=== PATIENT | male | born 1940 | race Caucasian/White ===

== ENCOUNTER 2023-06-14 12:17 | Observation (INO) | payer MEDICARE, SELFPAY ==
[2023-06-14] VITALS (19 sets, daily range): BP systolic 130–197; BP diastolic 68–104; PULSE 75–131; RESP 15–22; TEMP 36.2–36.4; O2SAT 95–100; BMI 32.3
--- NOTE | ~2023-06-14 | CT_ITS ---
EXAMINATION: CTA brain carotid DATE: 06/14/2023 15:12 INDICATION: Abnormal noncontrast CT TECHNIQUE: Computed tomographic angiography (CTA) of the head was performed with 100 mL Omnipaque-350 intravenous contrast. CTA of the neck was performed with intravenous contrast. The dose-length produ ct was 1176.17 mGy-cm. Maximum intensity projection and volume rendered 3D-reconstructions were creat ed by the technologist on a separate workstation. Automated exposure control and iterative reconstruc tion technique were employed. COMPARISON: Noncontrast CT from today, 12/20/2007 FINDINGS: HEAD CTA: There is no acute intraparenchymal hemorrhage. No evidence of mass lesion. No evidence of a cute infarction. There is a large area of prior infarction involving the right frontoparietal region. There is mild periventricular and subcortical hypodensity probably related to small vessel ischemic disease. There is mild prominence of the sulci and ventricles related to cerebral atrophy. Intracrani al calcified cerebral atherosclerosis is noted. There are no extra-axial collections. There is no mas s effect or midline shift. The orbits and soft tissues are unremarkable. The visualized sinuses and m astoid air cells are well aerated. There is no significant stenosis of the basilar artery or posterior cerebral arteries. There is no si gnificant stenosis of the intracranial internal carotid arteries or the anterior or middle cerebral a rteries. The anterior communicating artery is normal. The posterior communicating arteries are diminu tive. There is no aneurysm. NECK CTA: The thyroid gland is unremarkable. The submandibular and parotid glands are symmetric. Ther e is no lymphadenopathy. There are no masses identified. The airway is unremarkable. The superior med iastinum is unremarkable. There is severe cervical spondylosis. There is 60% stenosis of the proximal right internal carotid artery relative to normal distal artery lumen diameter (NASCET criteria). There is 0% stenosis of the proximal left internal carotid artery r elative to normal distal artery lumen diameter. IMPRESSION: 1. No acute intracranial abnormality. Unremarkable head CTA. Area of prior infarction in the right fr ontoparietal region. 2. 60% stenosis of the proximal right internal carotid artery relative to normal distal artery lumen diameter (NASCET criteria). 3. 0% stenosis of the proximal left internal carotid artery relative to normal distal artery lumen di ameter. Reviewed, dictated and finalized at location F. Y CHILDHOOD WORKER IMPRESSION: 1. No acute intracranial abnormality. Unremarkable head CTA. Area of prior infa rction in the right frontoparietal region. 2. 60% stenosis of the proximal right internal carotid artery relative to alexandro l distal artery lumen diameter (NASCET criteria). 3. 0% stenosis of the proximal left internal carotid artery relative to normal distal artery lumen diameter.
--- NOTE | ~2023-06-14 | CT_ITS ---
EXAMINATION: CT brain wo con DATE: 06/14/2023 13:40 INDICATION: Seizure. Cerebrovascular accident. TECHNIQUE: Computed tomography (CT) of the head was performed without intravenous contrast. The mA wa s adjusted according to patient size. Iterative reconstruction technique was employed. Exam dose: 60 5.33 mGy-cm total exam DLP. COMPARISON: 12/20/2007 CTA carotids FINDINGS: There is a large continuous prominent area of asymmetric diminished attenuation of the whit e matter in the right frontal parietal area, particularly higher over the right cerebral convexity, w ith multiple skip areas of overlying raphael matter density loss/hypodensity. Prominent bilateral carotid siphon internal carotid artery calcifications in addition to basilar robert ry calcification and prominent bilateral vertebral artery calcifications are noted. There is nonspeci fic diminished attenuation of the cerebral white matter bilaterally, which may be due to chronic smal l vessel ischemic changes. There is no apparent intracranial mass lesion on this limited noncontrast examination. No midline zeynep ft or mass effect. No intracranial hemorrhage is detected. Mild bilateral basal ganglia calcification. There is moderately prominent central and cortical cerebral and cerebellar volume loss. No subdural or epidural hematoma is detected. There is prominent opacification in the posterior left ethmoids and minimal posterior right ethmoid s oft tissue thickening. The paranasal sinuses and mastoid air cells are otherwise unremarkable. No fracture or bone destruction of the cranial vault is detected. IMPRESSION: Prominent asymmetric area of diminished attenuation of the right frontal parietal white matter, with multiple skip areas of raphael matter hypodensity; differential diagnosis includes cerebrov ascular accident, cerebritis, edema secondary to underlying mass lesion, demyelinating disorder, post -radiation change. Consider further evaluation with CT examination with IV contrast material or prefe rably MR brain examination Cerebral atherosclerosis and chronic small vessel ischemic changes of the cerebral white matter. Reviewed, dictated and finalized at Location A. Reviewed, dictated and finalized at location A. PHYSICIAN IMPRESSION: Prominent asymmetric area of diminished attenuation of the right f rontal parietal white matter, with multiple skip areas of raphael matter hypodensi ty; differential diagnosis includes cerebrovascular accident, cerebritis, edema secondary to underlying mass lesion, demyelinating disorder, post-radiation ch john. Consider further evaluation with CT examination with IV contrast material or preferably MR brain examination Cerebral atherosclerosis and chronic small vessel ischemic changes of the cereb ral white matter.
--- NOTE | ~2023-06-14 | XR_ITS ---
XR chest 1V portable DATE: 06/14/2023 13:15 INDICATION: Cerebrovascular accident TECHNIQUE: Portable AP chest on 06/14/2023 at 1313 hours COMPARISON: 01/02/2008 PA and lateral chest FINDINGS: Normal heart size. Aortic calcification. No hilar or mediastinal enlargement. No pulmonary infiltrate or consolidation, pleural effusion or pulmonary mass congestion or pneumothor ax. IMPRESSION: No active cardiopulmonary disease Aortic calcification Reviewed, dictated and finalized at location A. SS LEAD
--- NOTE | ~2023-06-14 | MR_ITS ---
EXAMINATION: MR brain/brain stem wo/w con DATE: 06/15/2023 12:28 INDICATION: New onset seizure. TECHNIQUE: Magnetic resonance imaging (MRI) of the brain and brainstem was performed without and with 20 mL MultiHance intravenous contrast. COMPARISON: Head CT 06/14/2023 FINDINGS: There is an old infarct in right frontoparietal region. There are scattered areas of nonspe cific increased T2-weighted signal intensity in the cerebral white matter and carlos alberto. There is no intra cranial hemorrhage, acute infarction, or abnormal intracranial mass lesion. The ventricles are normal in size. There are likely changes of ocular lens replacement surgeries. There is mucosal thickening in the paranasal sinuses. There is a trace left mastoid effusion. IMPRESSION: 1. Old infarct in right frontoparietal region. 2. Extensive nonspecific cerebral white matter disease and pontine disease, which likely represents c hronic small vessel ischemic disease. Reviewed, dictated and finalized at location A. RIAL COORDINATOR IMPRESSION: 1. Old infarct in right frontoparietal region. 2. Extensive nonspecific cerebral white matter disease and pontine disease, whi ch likely represents chronic small vessel ischemic disease.
--- NOTE | 2023-06-14 12:45 | ECG_ITS ---
Measurements Intervals [place] Rate: 88 P: -57 IN: 153 QRS: 74 QRSD: 107 T: 61 QT: 366 QTc: 444 Interpretive Statements SINUS RHYTHM BORDERLINE ST ABNORMALITY- INFERIOR LEADS BASELINE WANDER- III, AVF, V4-V6 BORDERLINE ECG NO PREVIOUS ECG AVAILABLE FOR COMPARISON Electronically Signed On 06-14-2023 16:12:01 [employer]AXI DRIVER by Darrell Gilliland D.O.
--- NOTE | 2023-06-14 13:05 | ED.SEIZURE ---
HPI - Seizure General Chief Complaint: Seizure Stated Complaint: seizure-like activity Time Seen by Provider: 06/14/23 13:01 Source: patient, family ( and stepson) and EMS Mode of arrival: EMS Limitations: no limitations History of Present Illness HPI Narrative: 83 yo R hand dominant male with PMH stroke (2007) and Hx 97% carotid stenosis s/p surgical intervention with only some minor symptoms remaining. LKW 11:20am. At 11:30 witnessed him having tonic clonic seizure activity. She alerted staff. Seizure aborted on its own after approx 1 minute. He was then noted to have stroke like symptoms with left sided facial droop and left arm pain. He couldn't lift his left leg and arm due to report of weakness. EMS checked blood glucose which was 67, he received glucose. states he was recently started on medication due to behavioral changes/ agitation /outbursts. Medication list as follows: acetaminophen, Antivert, aspirin, bupropion, calcium carbonate, citalopram, multivitamin, hydrocodone acetaminophen 5 mg, Lasix, losartan, metformin, omeprazole, Victoza. of these, it appears the bupropion is new, order dated 06/10/2023 and began 06/11/2023, 150mg BID. He has a pending psych c/f for his behavioral outbursts. He does complain of a headache. He had diarrhea at [facility] around the time he entered facility and had 14 falls in the past year secondary to vertigo and foot drop. Related Data Home Medications Medication Instructions Recorded Confirmed Centrum Silver Men 100 mg BYMOUTH DAILY 06/14/23 06/14/23 bupropion HCl 150 mg tablet,12 hr 150 mg PO BID 06/14/23 06/14/23 sustained-release citalopram 10 mg tablet 10 mg DAILY 06/14/23 06/14/23 furosemide 20 mg tablet 20 mg DAILY 06/14/23 06/14/23 hydrocodone 5 mg-acetaminophen 325 1 tablet PO Q4H PRN Pain, Mild 06/14/23 06/14/23 mg tablet liraglutide 0.6 mg/0.1 mL (18 mg/3 18 mg subcut DAILY 06/14/23 06/14/23 mL) subcutaneous pen injector (Victoza 2-Yogi) losartan 100 mg tablet 100 mg PO DAILY 06/14/23 06/14/23 metformin 1,000 mg tablet 1,000 mg PO DAILY 06/14/23 06/14/23 omeprazole 20 mg capsule,delayed 20 mg PO DAILY 06/14/23 06/14/23 release Allergies Allergy/AdvReac Type Severity Reaction Status Date / Time No Known Allergies Allergy Unknown Verified 12/31/22 14:05 [facility] Past Medical History Medical History (Updated 06/15/23 @ 03:44 by Lissy Whitman MD) Adjustment disorder with depressed mood Cerebral infarction, unspecified (~2007) Cervicalgia Dementia Diabetes Dislocation of interphalangeal joint of left thumb Dizziness and giddiness Essential hypertension Functional quadriplegia Gastro-esophageal reflux disease without esophagitis History of carotid artery dissection History of stroke (~2007) Hyperlipidemia Hypertension Lesion of ulnar nerve, left upper limb Localized edema Malignant neoplasm of prostate (~1996) Nicotine dependence Obstructive sleep apnea Pain in left hip Pain, unspecified Polyosteoarthritis, unspecified Repeated falls Spinal stenosis, cervical region Type 2 diabetes mellitus Violent behavior Surgical History Surgical History (Updated 06/14/23 @ 23:57 by Abiola Guillory DO) History of appendectomy History of back surgery History of elbow surgery 2020- cubital tunnel release History of knee replacement bilateral- 2011 & 2012 History of penile implant (~2006) History of prostatectomy Radical prostatectomy 1996 History of right-sided carotid endarterectomy (~2007) History of surgery on arm 2013 left forearm reconstruction Status post cataract extraction of both eyes with insertion of intraocular lens Family History Family History Mother Hypertension Family history of congestive heart failure Father Malignant neoplasm of prostate Social History Social History (Updated 06/14/23 @ 23:57 by Abiola Guillory DO) Social History: Cod
[2023-06-14 14:04] LABS: Basophils Absolute Auto 0.1 K/mm3 (0.0-0.1); Basophils Percent Auto 0.8 % (0.2-1.2); Eosinophils Absolute Auto 0.2 K/mm3 (0-0.3); Eosinophils Percent Auto 1.2 % (0-4.4); Hematocrit 38.6 % (42.0-52.0); Hemoglobin 11.8 g/dL (14.0-18.0); Immature Granulocyte Absolute 0.21 K/mm3 (0.00-0.031); Immature Granulocyte Percent A 1.6 % (0-0.5); Lymphocytes Percent Auto 13.1 % (18.3-44.2); Mean Corpuscular HGB Conc 30.6 g/dl (32-36); Mean Corpuscular Hemoglobin 25.9 pg (26-34); Mean Corpuscular Volume 84.6 fl (80-100); Mean Platelet Volume 10.7 fl (7.4-10.4); Monocytes Absolute Auto 0.8 K/mm3 (0.1-0.6); Monocytes Percent Auto 6.3 % (2.6-8.5); Platelet Count Result 321 k/mm3 (150-375); Red Blood Count 4.56 M/mm3 (4.6-6.20); Red Cell Distribution Width 17.5 % (11.5-14.5)
[2023-06-14 14:16] LABS: Appearance Urine Clear (Clear); Bacteria Urine None Seen /hpf; Bilirubin Urine Negative (Negative); Blood Urine Negative (Negative); Color Urine Yellow (Yellow); Glucose Urine UA Negative (Negative); Ketones Urine Negative (Negative); Leukocyte Esterase Ur Negative LEU/UL (Negative); Nitrate Urine Negative (Negative); Non Pathogenic Casts 0-2; Protein Urine Trace mg/dL (Negative); RBC Urine 0-2 /hpf (0-2); Specific Grav Ur 1.011 (1.001-1.035); Squamous Epithelial Cell Urine None seen /hpf (Few); Urobilinogen Urine 0.2 mg/dL (<2.0); WBC Urine 0-5 /hpf; pH Urine 6.5 (5.0-9.0)
[2023-06-14 14:17] LABS: Alanine Aminotransferase 23 U/L (6-50); Albumin Level 4.4 g/dL (3.5-5.1); Alkaline Phosphatase 98 U/L (38-126); Anion Gap 14 mmol/L (8-16); Aspartate Amino Transferase 23 U/L (17-59); Bilirubin,Total 0.5 mg/dL (0.2-1.3); Blood Urea Nitrogen 17 mg/dL (9-20); Calcium 9.4 mg/dL (8.4-10.2); Carbon Dioxide 22 mmol/L (22-30); Chloride 101 mmol/L (98-107); Estimated CRCL calculation 56 ml/min; Estimated Glomerular Filt Rate > 60; Glucose 93 mg/dL (65-110); Potassium 4.5 mmol/L (3.4-5.0); Sodium 137 mmol/L (137-145)
[2023-06-14 14:24] LABS: Add Urine Microscopic? YES
[2023-06-14 14:26] LABS: Lactic Acid Reflex 4.8 mmol/L (0.7-2.0)
[2023-06-14 14:28] LABS: Troponin I < 0.012 ng/mL (0.000-0.034)
[2023-06-14] MEDS: SODIUM CHLORIDE 0.9% IV 1,000 ML 999 ML IV CONT (14:43)
[2023-06-14 15:32] LABS: Partial Thromboplastin Time 29.8 SECONDS (22.3-36.8); Prothrombin Time 13.3 Seconds (11.1-14.7)
[2023-06-14] MEDS: ASPIRIN 81 MG CHEWABLE TABLET 324 MG PO (16:57)
[2023-06-14 17:01] LABS: Reflex Lactic Acid Yes or No Add Lactic
[2023-06-14 17:26] LABS: Lactic Acid 1.9 mmol/L (0.7-2.0)
--- NOTE | 2023-06-14 17:55 | ADMGEN ---
This patient, Houston Thomas, was admitted to [facility] Surg Room 329-01 @ 1755. Patient/family oriented to hospital policies and general routines including ID bracelet, bed and alarms, visiting hours, pain management, procedures, bathroom and other care routines, personal items, smoking policy, room service/diet, and visiting hours. Information on how to activate the Rapid Response Team has been discussed. Patient/Family are encouraged to report perceived risks to care and to ask questions if they do not understand what they are told or what they should do.
[2023-06-14 20:16] LABS: Glucose Point of Care 91 mg/dl (65-105)
[2023-06-14 21:13] LABS: Troponin I < 0.012 ng/mL (0.000-0.034)
--- NOTE | 2023-06-14 21:20 | PC.NURSE ---
this RN attempted to do patients MRI screening form with them, patient couldn't tell me the year, or where he was. RN attempted to call patients to help with the MRI screening for but received no answer from them, will try again in the morning
[2023-06-14 21:42] LABS: Glucose Point of Care 152 mg/dl (65-105)
--- NOTE | 2023-06-14 23:47 | PM.IMHP ---
H&P: HPI History of Present Illness Date/Time: 06/14/23 23:47 Chief Complaint: Seizure activity Narrative: 83-year-old male with past medical history of diabetes, hyperlipidemia, peripheral vascular disease, depression and essential hypertension who was brought in from [facility] via EMS due to new onset seizure. Patient reportedly had a tonic clonic seizure that lasted approximately 1 minute. Patient's glucose at that time was 67. The patient was reportedly recently started on Wellbutrin. The patient was reportedly having left-sided facial and arm neglect after a seizure. The patient's symptoms resolved after glucose administration and glucose on presentation to the ER was 91.The patient himself is only oriented to person and thought that he was at the local [facility]. He does not know what brought him into the hospital. He is pleasantly confused but unable to provide any history. Patient has not had any further seizures since admission. Review of Systems Review of Systems: ROS unobtainable: Yes unobtainable due to medical condition ( dementia) [facility] Past Medical History Medical History (Updated 06/15/23 @ 06:50 by Abiola Guillory DO) Adjustment disorder with depressed mood Carotid artery stenosis Cerebral infarction, unspecified (~2007) Cervicalgia Dementia Diabetes Dislocation of interphalangeal joint of left thumb Dizziness and giddiness Essential hypertension Functional quadriplegia Gastro-esophageal reflux disease without esophagitis History of carotid artery dissection History of stroke (~2007) Hyperlipidemia Hypertension Lesion of ulnar nerve, left upper limb Localized edema Malignant neoplasm of prostate (~1996) Nicotine dependence Obstructive sleep apnea Pain in left hip Polyosteoarthritis, unspecified Repeated falls Spinal stenosis, cervical region Type 2 diabetes mellitus Violent behavior Surgical History Surgical History (Updated 06/14/23 @ 23:57 by Abiola Guillory DO) History of appendectomy History of back surgery History of elbow surgery 2020- cubital tunnel release History of knee replacement bilateral- 2011 & 2012 History of penile implant (~2006) History of prostatectomy Radical prostatectomy 1996 History of right-sided carotid endarterectomy (~2007) History of surgery on arm 2013 left forearm reconstruction Status post cataract extraction of both eyes with insertion of intraocular lens Family History Family History Mother Hypertension Family history of congestive heart failure Father Malignant neoplasm of prostate Social History Social History (Updated 06/14/23 @ 23:57 by FERN Field Social History: Code status: DNR/DNI Smoking status: Former smoker Alcohol intake: former Substance use: never Do You Feel Safe in your Home?: Yes Lack of Transportation: No Lack of Food: Never True Current Housing: I Have Housing Concerned About Future Housing: No Difficulty Paying Gas/Electric Bills: No Difficulty Paying for Meds: No Currently Unemployed: No Education: Master's Degree or Higher Difficulty w/ Childcare or Family Care: No Living arrangements: fdc Additional living arrangements comments: [facility] in [facility] Occupation/Education: retired Spiritual care concerns: No Meds Home Medications and Allergies Home Medications Medication Instructions Recorded Confirmed Type Centrum Silver Men 100 mg BYMOUTH DAILY 06/14/23 06/14/23 History bupropion HCl 150 mg tablet,12 hr 150 mg PO BID 06/14/23 06/14/23 History sustained-release citalopram 10 mg tablet 10 mg DAILY 06/14/23 06/14/23 History furosemide 20 mg tablet 20 mg DAILY 06/14/23 06/14/23 History hydrocodone 5 mg-acetaminophen 325 1 tablet PO Q4H PRN Pain, Mild 06/14/23 06/14/23 History mg tablet liraglutide 0.6 mg/0.1 mL (18 mg/3 18 mg subcut DAILY 06/14/23 06/14/23 H
[2023-06-15] VITALS (10 sets, daily range): BP systolic 151–170; BP diastolic 67–84; PULSE 75–83; RESP 16–20; TEMP 35.8–36.9; O2SAT 96–98
[2023-06-15 06:33] LABS: Hematocrit 36.7 % (42.0-52.0); Hemoglobin 11.4 g/dL (14.0-18.0); Mean Corpuscular HGB Conc 31.1 g/dl (32-36); Mean Corpuscular Hemoglobin 25.8 pg (26-34); Mean Platelet Volume 9.8 fl (7.4-10.4); Platelet Count Result 273 k/mm3 (150-375); Red Blood Count 4.42 M/mm3 (4.6-6.20); Red Cell Distribution Width 17.3 % (11.5-14.5); White Blood Count 9.1 K/mm3 (4.5-10.0)
[2023-06-15 07:04] LABS: Anion Gap 9 mmol/L (8-16); Blood Urea Nitrogen 16 mg/dL (9-20); Calcium 9.1 mg/dL (8.4-10.2); Carbon Dioxide 25 mmol/L (22-30); Chloride 104 mmol/L (98-107); Estimated CRCL calculation 56 ml/min; Estimated Glomerular Filt Rate > 60; Glucose 86 mg/dL (65-110); Sodium 138 mmol/L (137-145)
[2023-06-15 07:50] LABS: Hemoglobin A1C 5.7 % (<5.7)
[2023-06-15 08:17] LABS: Glucose Point of Care 98 mg/dl (65-105)
[2023-06-15] MEDS: LOSARTAN POTASSIUM 100 MG TABLET PO (08:29)
[2023-06-15] MEDS: PANTOPRAZOLE 40 MG TABLET PO (08:29)
[2023-06-15 12:15] LABS: Glucose Point of Care 117 mg/dl (65-105)
[2023-06-15] MEDS: MULTIVITAMINS /C LUTEIN (CENTRUM SILVER) TABLET *BKC 1 TAB BY MOUTH (14:25)
--- NOTE | 2023-06-15 15:31 | PM.IMPN ---
Progress Note: A&P Assessment and Plan (1) Seizure: Code(s): R56.9 - Unspecified convulsions Status: Acute Assessment and Plan: The seizure was possibly due to recent addition of Wellbutrin to the patient's medications and/or hypoglycemic event. Wellbutrin stopped. A1c 5.7 to suggest that glycemic control is too tight. Continue seizure precautions. Neurology was contacted from the ER and recommended MRI. Brain MRI showing old infarct right frontoparietal region and extensive nonspecific cerebral white matter disease. Anti-seizure medications were held. Home soon if no more seizures (2) Hypoglycemia due to type 2 diabetes mellitus: Code(s): E11.649 - Type 2 diabetes mellitus with hypoglycemia without coma Status: Acute Assessment and Plan: Glucose was 67 at the time of the seizure. A1c 5.7. Holding anti-hyperglycemics for now. (3) Adjustment disorder with depressed mood: Code(s): F43.21 - Adjustment disorder with depressed mood Status: Acute Assessment and Plan: Mood stable. Has a hx of violent behavior. Resume celexa (4) Obstructive sleep apnea: Code(s): G47.33 - Obstructive sleep apnea (adult) (pediatric) Status: Acute Assessment and Plan: Unclear if he wears CPAP regularly or not. Will order here Plan DVT prophylaxis - SCDs Code staus - DNR Subjective Date/time seen: 06/15/23 15:31 Interval history: 83yo male with DM, HLD, PAD and dementia here for seizure activity. Patient is alert but confused. Feeling well. No CP or SOB. No problems. Exam Narrative: AF 98.4 151/67 78 16 96% Gen - NARD HEENT - mild tongue trauma noted. Chest - CTA bilaterally, nml RR CV - RRR S1/S2 Abd - Soft, NT/ND, Positive BS Ext - No pedal edema Neuro - Alert and confused. mild left sided weakness Psych - Nml mood and affect Skin - Warm and dry Objective Data Vital Signs Vital Signs: Vital Signs - 24 hr 06/14/23 15:37 06/14/23 15:45 06/14/23 16:13 Temperature Pulse Rate 83 85 84 Respiratory Rate 17 18 18 Blood Pressure Pulse Oximetry 99 100 97 Oxygen Delivery 06/14/23 16:15 06/14/23 16:30 06/14/23 16:47 Temperature Pulse Rate 84 83 83 Respiratory Rate 16 17 15 Blood Pressure 180/68 H Pulse Oximetry 99 98 99 Oxygen Delivery 06/14/23 17:33 06/14/23 17:55 06/14/23 21:15 Temperature Pulse Rate 81 80 Respiratory Rate 16 Blood Pressure 168/81 H Pulse Oximetry 97 Oxygen Delivery Room Air 06/14/23 20:12 06/15/23 00:25 06/15/23 00:00 Temperature 97.1 F L 97.1 F L Pulse Rate 80 81 83 Respiratory Rate 18 20 Blood Pressure 161/81 H 166/80 H Pulse Oximetry 98 97 Oxygen Delivery 06/15/23 04:00 06/15/23 04:45 06/15/23 08:00 Temperature 96.4 F L Pulse Rate 75 79 Respiratory Rate 18 Blood Pressure 159/84 H Pulse Oximetry 98 Oxygen Delivery Room Air 06/15/23 08:00 06/15/23 12:00 06/15/23 14:00 Temperature 98.4 F Pulse Rate 79 83 78 Respiratory Rate 16 Blood Pressure 151/67 H Pulse Oximetry 96 Oxygen Delivery Intake/Output Intake/Output: Intake & Output 06/12/23 06/13/23 06/14/23 06/15/23 23:59 23:59 23:59 23:59 Intake Total 1000 760 Output Total 400 Balance 1000 360 Meds/Results Medications: Active Medications Generic Name Dose Route Start Last Admin Trade Name Freq PRN Reason Stop Dose Admin Acetaminophen 650 mg 06/14/23 16:39 Acetaminophen 325 Mg Tablet PO Q4H PRN Mild Pain (1-3) or Fever Hydrocodone Bitart/Acetaminophen 1 tab 06/14/23 23:46 Hydrocodone/Acetaminophen (*Crx) 5-325 Mg Tablet PO Q4H PRN Pain 4-6 Dextrose 12.5 gm 06/14/23 17:41 Dextrose 50% 25 Gm/50 Ml Syringe IV PUSH PRN PRN Hypoglycemia Protocol Glucagon 1 mg 06/14/23 17:41 Glucagon For Inj 1 Mg Vial IM PRN PRN Hypoglycemia Protocol Glucose
[2023-06-15 16:40] LABS: Glucose Point of Care 98 mg/dl (65-105)
[2023-06-15 19:52] LABS: Glucose Point of Care 130 mg/dl (65-105)
[2023-06-16] VITALS: PULSE 75
[2023-06-16 00:55] VITALS: BP 175/80; PULSE 73; RESP 20; TEMP 36.4; O2SAT 97
[2023-06-16 08:42] LABS: Glucose Point of Care 131 mg/dl (65-105)
[2023-06-16] MEDS: MULTIVITAMINS /C LUTEIN (CENTRUM SILVER) TABLET *BKC 1 TAB BY MOUTH (08:44)
[2023-06-16] MEDS: LOSARTAN POTASSIUM 100 MG TABLET PO (08:44)
[2023-06-16] MEDS: CITALOPRAM HYDROBROMIDE 10 MG TABLET BY MOUTH (08:44)
[2023-06-16] MEDS: PANTOPRAZOLE 40 MG TABLET PO (08:44)
--- NOTE | 2023-06-16 10:10 | WPDNEURCNPN ---
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 4. 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 Consult date: 06/16/23 HPI: Houston Thomas is a 83 year old maleAdmitted to the hospital through the emergency room on June 14, 2023 with history of having had generalized tonic clonic seizure activity at 11:30 a.m. witnessed by his seizure lasted for only [id number] and subsequently he was noted to have stroke-like symptoms with left-sided facial droop and left upper extremity pain complain he was unable to lift his left lower extremity and left upper extremity because of the weakness at that time his glucose was 67 and he did receive the glucose he was recently started on medication for his behavior problems agitation without burst his medications included Antivert, aspirin, bupropion, citalopram, and hydrocodone 5mg, losartan, metformin, omeprazole, and Victoza. He has a pending psych follow-up for his behavioral outburst. He has had his stroke in 2007 and also documented 97% carotid stenosis with surgical intervention. He is a former smoker former alcohol intake and initial exam in the emergency room documented him to be not aphasic and possible right lower extremity clonus. His vital signs were normal with blood pressure 166/881 time routine lab studies were not significant, chest x-ray was negative except aortic calcification, CT scan was abnormal with asymmetry of the right frontal parietal white matter with suggestion to have the MRI and CTA documented 60% stenosis of proximal right internal carotid artery but no aneurysm or any other vascular stenosis EKG was without atrial fibrillation, subsequently has had the MRI of the brain which documented old infarct in the right frontoparietal region with normal ventricles and extensive nonspecific white matter disease and pontine disease. [facility] Past Medical History Medical History Adjustment disorder with depressed mood Carotid artery stenosis Cerebral infarction, unspecified (~2007) Cervicalgia Dementia Diabetes Dislocation of interphalangeal joint of left thumb Dizziness and giddiness Essential hypertension Functional quadriplegia Gastro-esophageal reflux disease without esophagitis History of carotid artery dissection History of stroke (~2007) Hyperlipidemia Hypertension Lesion of ulnar nerve, left upper limb Localized edema Malignant neoplasm of prostate (~1996) Nicotine dependence Obstructive sleep apnea Pain in left hip Polyosteoarthritis, unspecified Repeated falls Spinal stenosis, cervical region Type 2 diabetes mellitus Violent behavior Surgical History Surgical History History of appendectomy History of back surgery History of elbow surgery 2020- cubital tunnel release History of knee replacement bilateral- 2011 & 2012 History of penile implant (~2006) History of prostatectomy Radical prostatectomy 1996 History of right-sided carotid endarterectomy (~2007) History of surgery on arm 2013 left forearm reconstruction Status post cataract extraction of both eyes with insertion of intraocular lens Family History Family History Mother Hypertension Family history of congestive heart failure Father Malignant neoplasm of prostate Social His
[2023-06-16 11:32] LABS: Glucose Point of Care 140 mg/dl (65-105)
[2023-06-16 13:55] VITALS: PULSE 81
[2023-06-16 14:00] VITALS: BP 106/64; PULSE 90; RESP 16; TEMP 35.7; O2SAT 98
[2023-06-16] MEDS: levETIRAcetam 500 MG TABLET PO ×2 (14:34→20:11)
[2023-06-16] MEDS: ASPIRIN 81 MG ENTERIC TABLET PO (14:34)
[2023-06-16 16:00] VITALS: PULSE 79
[2023-06-16 17:13] LABS: Glucose Point of Care 104 mg/dl (65-105)
[2023-06-16 17:50] LABS: SARS-CoV-2 RNA PCR Negative (Negative)
--- NOTE | 2023-06-16 17:57 | PCCCNOTE ---
CC called in regards to pt getting discharged back to [facility] tonight. Covid test pending, I spoke with hCina at [facility], nothing else was needed from . Packet taken to Tat[facility] LONGOR[facility], number provided for report.
--- NOTE | 2023-06-16 18:00 | PM.DS ---
DS: Admitting Diagnosis Discharge Date 06/16/23 Admitting Diagnosis Seizure DS: Discharge Diagnosis Discharge Diagnosis (1) Seizure: Code(s): R56.9 - Unspecified convulsions Status: Acute (2) Hypoglycemia due to type 2 diabetes mellitus: Code(s): E11.649 - Type 2 diabetes mellitus with hypoglycemia without coma Status: Acute (3) Adjustment disorder with depressed mood: Code(s): F43.21 - Adjustment disorder with depressed mood Status: Acute (4) Obstructive sleep apnea: Code(s): G47.33 - Obstructive sleep apnea (adult) (pediatric) Status: Acute (5) Carotid artery stenosis: Qualifiers: Laterality: unspecified laterality Qualified Code(s): I65.29 - Occlusion and stenosis of unspecified carotid artery Code(s): I65.29 - Occlusion and stenosis of unspecified carotid artery Status: Acute DS: Summary Hospital Course Reason for hospitalization: 83yo male with DM, HLD, PAD and dementia here for seizure activity. Please see H&P for details. Hospital Course: Patietn brought in after having seizure-like activity. The seizure was possibly due to? recent addition of Wellbutrin to the patient's medications and/or hypoglycemic event.?Wellbutrin was stopped. A1c 5.7 to suggest that glycemic control is too tight. CR was clear. UA was clear. lactic 4.8 felt related to the seizure. Repeat was normal. Troponin negative x2. Head and neck CTA showing 60% stenosis of the proximal right ICA. Seizure precautions started. Anti-hyperglycemics were held and glucose remained stable. Neurology was contacted from the ER and recommended MRI.?Brain MRI showing old infarct right frontoparietal region and extensive nonspecific cerebral white matter disease. Neurology was consulted and appreciate their input. Keppra started. ASA and Lipitor added given hx of CVA. He had no further events. He was able to he discharged on 06/16/23 Status at Discharge Cognitive/behavioral status at discharge: stable Time Spent with Patient Time attestation: Total time spent providing and/or coordinating discharge services: 35 minutes Time spent: Greater than 30 minutes Exam Narrative: AF 96.2 106/64 79 16 98% ra Gen - NARD Chest - CTA bilaterally, nml RR CV - RRR S1/S2. Tele showing no significant dysrhythmias Abd - Soft, NT/ND, Positive BS Ext - No pedal edema Neuro - Alert and confused Psych - Nml mood and affect Skin - Warm and dry DS: Data Data Completed and Pending Labs on day of discharge: Labs from last 24 hours 06/16/23 06/16/23 06/16/23 17:07 17:01 11:27 POC Capillary Glucose 104 140 H SARS-CoV-2 RNA (RT-PCR) Negative 06/16/23 06/15/23 07:51 19:44 POC Capillary Glucose 131 H 130 H SARS-CoV-2 RNA (RT-PCR) Discharge Plan Discharge Attending physician on discharge: Tung Gonsalez Consulting providers: Scarlett Strange Discharging Clinician: Tung Gonsalez Anticipated Discharge Date/Time: 06/16/23 18:04 Patient Disposition: NH Halfway/Asst Living Activity: as tolerated Diet: diabetic Discharge Instructions: Please check glucose before meals and before bed. Record for the doctor's review. Check blood pressure 1 to 2 times a day. Record for the doctor's review. Take precautions to avoid falls. Rise slowly from a lying or sitting position. Pause before standing or walking. Contact the doctor if the patient has seizure-like activity or other worrisome symptoms. Avoid NSAIDs (ibuprofen, naproxen, Aleve). Tylenol is safe to take. Follow-up with the provider at the facility. Follow-up with Neurology in 4-6 weeks. Please call for an appointment Thank you for using [facility] for your health care needs. Patient Instructions: Antibiotic Form Stand Alone Forms: General Discharge Information Follow-up/Referrals: Scarlett Strange MD [Physician] - Call for Appointment Discharge Medications: New
--- NOTE | 2023-06-16 18:05 | PC.NURSE ---
Son at bedside. Updated on plan to transfer back to [facility] this evening.
--- NOTE | 2023-06-16 18:24 | PC.NURSE ---
Telephone report given to Urmila Atkinson RN.
--- NOTE | 2023-06-16 18:44 | PC.NURSE ---
Ale Thomas, spouse, notified per telephone of plan to discharge per ambulance back to [facility] this evening.
[2023-06-16 20:09] LABS: Glucose Point of Care 126 mg/dl (65-105)
== END 2023-06-16 22:50 ==
LOC: ANHED 13:27 → ANH3MEDSUR 18:46
PROVIDERS: Emergency Medicine; Internal Medicine; Student in an Organized Health Care Education/Training Program; Admitting Provider General Practice; Emergency Provider Student in an Organized Health Care Education/Training Program; PCP Family Medicine; Visit Provider Internal Medicine
DX: R56.9 Unspecified convulsions (principal); E11.649 Type 2 diabetes mellitus with hypoglycemia without coma; F43.21 Adjustment disorder with depressed mood; G47.33 Obstructive sleep apnea (adult) (pediatric); I65.29 Occlusion and stenosis of unspecified carotid artery; F03.90 Unspecified dementia, unspecified severity, without behavioral disturbance, psychotic disturbance, mood disturbance, and anxiety; I70.0 Atherosclerosis of aorta; Z20.822 Contact with and (suspected) exposure to COVID-19; E11.51 Type 2 diabetes mellitus with diabetic peripheral angiopathy without gangrene; I10 Essential (primary) hypertension; R90.82 White matter disease, unspecified; K21.9 Gastro-esophageal reflux disease without esophagitis; E78.5 Hyperlipidemia, unspecified; M15.9 Polyosteoarthritis, unspecified; R29.6 Repeated falls; Z66 Do not resuscitate; Z86.73 Personal history of transient ischemic attack (TIA), and cerebral infarction without residual deficits; Z87.891 Personal history of nicotine dependence; Z79.891 Long term (current) use of opiate analgesic; Z79.85 Long-term (current) use of injectable non-insulin antidiabetic drugs; Z79.84 Long term (current) use of oral hypoglycemic drugs; Z79.899 Other long term (current) drug therapy; Z82.49 Family history of ischemic heart disease and other diseases of the circulatory system
CPT/HCPCS: 36415; 70450; 70496; 70498; 70553; 71045; 80048; 80053; 81001; 82948; 83036; 83605; 84484; 85025; 85027; 85610; 85730; 87635; 93005; 96360; 96361; 99285; A9270; A9577; G0378; J7030; Q9967

== ENCOUNTER 2024-03-03 04:34 | Emergency (ER) | payer MEDICARE, SELFPAY ==
--- NOTE | ~2024-03-03 | CT_ITS ---
EXAMINATION: CT cervical spine wo con DATE: 03/03/2024 05:25 INDICATION: Found face down on floor post fall TECHNIQUE: Computed tomography (CT) of the cervical spine was performed without intravenous contrast. Automated exposure control and iterative reconstruction technique were employed. The dose-length pro duct was 481.88 mGy-cm. COMPARISON: None FINDINGS: 8 degrees cervicothoracic levocurvature. Sagittal alignment is normal. Severe osteoarthritis at the a tlantoaxial articulation. Vertebral body heights are normal. No acute fracture. Severe disc height lo ss at C4-C5 through T1-T2. Moderate disc height loss at C3-C4 and mild disc height loss at C2-C3. Pos terior endplate osteophytes contributing to multilevel mild central canal stenosis most prominent at C4-C5, C5-C6 and C6-C7. There is multilevel bilateral moderate to severe cervical facet and uncoverte bral osteoarthritis contributing to mild and moderate neural foraminal stenosis throughout the cervic al spine. Atherosclerotic calcifications at the bilateral common and internal carotid arteries. There are surgical clips on the right suggesting possible right-sided carotid endarterectomy. Cervical sof t tissues are otherwise unremarkable. Visualized apices of lungs are clear. IMPRESSION: 1. Severe cervical spondylosis. No acute osseous abnormality. Reviewed, dictated and finalized at location A.
--- NOTE | ~2024-03-03 | XR_ITS ---
EXAMINATION: XR chest 1V portable DATE: 03/03/2024 04:52 INDICATION: Found on floor post fall TECHNIQUE: COMPARISON: Chest radiograph dated FINDINGS: Calcified nodule at the right lung base along with calcified hilar and mediastinal lymph nodes consis tent with old granulomatous disease. No other airspace opacities, pulmonary edema, pleural effusion o r pneumothorax. Heart size is normal. Mild to moderate thoracic spondylosis. IMPRESSION: 1. No acute cardiopulmonary disease. Reviewed, dictated and finalized at location A.
--- NOTE | ~2024-03-03 | CT_ITS ---
EXAMINATION: CT brain wo con DATE: 03/03/2024 05:24 INDICATION: Found on floor post fall TECHNIQUE: Computed tomography (CT) of the head was performed without intravenous contrast. Sagittal and coronal reconstructions were performed. The mA was adjusted according to patient size. Iterative reconstruction technique was employed. The dose-length product was 529.67 mGy-cm. COMPARISON: head CT dated 06/14/2023 and brain MR dated 06/15/2023 FINDINGS: No fracture. Moderate-sized region of encephalomalacia in the right frontoparietal region consistent with chronic infarct. No acute intracranial hemorrhage, acute infarction or abnormal extra axial flui d collection. There is additional scattered white matter hypoattenuation consistent with chronic smal l vessel ischemic disease. Symmetric prominence of the sulci and and subarachnoid spaces overlying th e convexities consistent with mild age-appropriate diffuse cerebral volume loss. Ventricles are norm al and symmetric. No mass/mass effect. There is mucosal thickening in the bilateral ethmoid and left maxillary and sphenoid sinuses. The orbits and mastoid air cells are normal. IMPRESSION: 1. No fracture or acute intracranial process. 2. Chronic infarct in the right frontoparietal region with additional scattered white matter hypoatte nuation consistent with chronic small vessel ischemic disease. Reviewed, dictated and finalized at location A. IMPRESSION: 1. No fracture or acute intracranial process. 2. Chronic infarct in the right frontoparietal region with additional scattered white matter hypoattenuation consistent with chronic small vessel ischemic dis ease.
--- NOTE | ~2024-03-03 | XR_ITS ---
EXAMINATION: XR pelvis 1-2V DATE: 03/03/2024 04:52 INDICATION: Found on floor post fall TECHNIQUE: An anteroposterior view of the pelvis was obtained. COMPARISON: 12/31/2022 FINDINGS: Bone alignment is normal. No fracture. Severe lower lumbar spondylosis. Mild bilateral hip and sacroi liac osteoarthritis. Multiple surgical clips in the pelvis. Penile implant. IMPRESSION: 1. No acute osseous abnormality. Reviewed, dictated and finalized at location A.
[2024-03-03 04:36] VITALS: BP 133/78; PULSE 80; RESP 19; TEMP 36.7; O2SAT 95
[2024-03-03 04:41] VITALS: RESP 20; O2SAT 95
--- NOTE | 2024-03-03 04:44 | ED.FALL ---
HPI - Fall General Chief Complaint: Fall Stated Complaint: fall Time Seen by Provider: 03/03/24 04:38 History of Present Illness HPI Narrative: patient presents here after a fall, he had accidentally fallen out of bed, was found on the ground. Patient cannot recall what happened but denies any complaints other than chronic left hip pain. Currently is at baseline per group home report Related Data Home Medications Medication Instructions Recorded Confirmed Centrum Silver Men 100 mg BYMOUTH DAILY 06/14/23 06/14/23 citalopram 10 mg tablet 10 mg DAILY 06/14/23 06/14/23 furosemide 20 mg tablet 20 mg DAILY 06/14/23 06/14/23 liraglutide 0.6 mg/0.1 mL (18 mg/3 18 mg subcut DAILY 06/14/23 06/14/23 mL) subcutaneous pen injector (Victoza 2-Yogi) losartan 100 mg tablet 100 mg PO DAILY 06/14/23 06/14/23 metformin 1,000 mg tablet 1,000 mg PO DAILY 06/14/23 06/14/23 omeprazole 20 mg capsule,delayed 20 mg PO DAILY 06/14/23 06/14/23 release Allergies Allergy/AdvReac Type Severity Reaction Status Date / Time No Known Allergies Allergy Unknown Verified 03/03/24 04:42 Review of Systems Review of Systems: All systems reviewed & are unremarkable except as noted in HPI and below PMFSH Past Medical History Medical History (Updated 03/03/24 @ 07:15 by Rosalina Vargas MD) Adjustment disorder with depressed mood Carotid artery stenosis Cerebral infarction, unspecified (~2007) Cervicalgia Dementia Diabetes Dislocation of interphalangeal joint of left thumb Dizziness and giddiness Essential hypertension Functional quadriplegia Gastro-esophageal reflux disease without esophagitis History of carotid artery dissection History of stroke (~2007) Hyperlipidemia Hypertension Lesion of ulnar nerve, left upper limb Localized edema Malignant neoplasm of prostate (~1996) Nicotine dependence Obstructive sleep apnea Pain in left hip Polyosteoarthritis, unspecified Repeated falls Spinal stenosis, cervical region Type 2 diabetes mellitus Violent behavior Surgical History Surgical History History of appendectomy History of back surgery History of elbow surgery 2020- cubital tunnel release History of knee replacement bilateral- 2011 & 2012 History of penile implant (~2006) History of prostatectomy Radical prostatectomy 1996 History of right-sided carotid endarterectomy (~2007) History of surgery on arm 2014 left forearm reconstruction Status post cataract extraction of both eyes with insertion of intraocular lens Family History Family History Mother Hypertension Family history of congestive heart failure Father Malignant neoplasm of prostate Social History Social History Social History: Code status: DNR/DNI Smoking status: Former smoker Alcohol intake: former Substance use: never Do You Feel Safe in your Home?: Yes Lack of Transportation: No Lack of Food: Never True Current Housing: I Have Housing Concerned About Future Housing: No Difficulty Paying Gas/Electric Bills: No Difficulty Paying for Meds: No Currently Unemployed: No Education: Master's Degree or Higher Difficulty w/ Childcare or Family Care: No Living arrangements: group home Additional living arrangements comments: [facility] in [facility] Occupation/Education: retired Spiritual care concerns: No Exam Narrative: EXAMINATION OF ORGAN SYSTEMS/BODY AREAS: Constitutional: Vital signs per nursing GENERAL:[No acute distress, non-toxic appearing.] HEAD: Normal with no signs of head trauma. EYES: EOMI, conjunctiva normal ENT: Hearing grossly intact LUNGS: Nonlabored breathing. HEART: [Regular rate and rhythm] ABD: [Soft], [nontender to palpation] EXT: Normal range of motion; what appears to be old bruising to bilateral arms NEURO: [Alert. N
[2024-03-03 07:50] VITALS: BP 152/90; PULSE 82; RESP 20; O2SAT 96
--- NOTE | 2024-03-03 07:52 | PC.NURSE ---
Spoke with SWATI Tovar at [facility] for report. Waiting on S ambulance transport to take patient back to facility
--- NOTE | 2024-03-03 08:03 | PC.NURSE ---
Patient cleaned up and depend changed
== END 2024-03-03 08:30 ==
PROVIDERS: Emergency Provider Emergency Medicine; PCP Family Medicine
DX: Z04.3 Encounter for examination and observation following other accident (principal); I65.29 Occlusion and stenosis of unspecified carotid artery; I10 Essential (primary) hypertension; E11.9 Type 2 diabetes mellitus without complications; E78.5 Hyperlipidemia, unspecified; G47.33 Obstructive sleep apnea (adult) (pediatric); K21.9 Gastro-esophageal reflux disease without esophagitis; M19.90 Unspecified osteoarthritis, unspecified site; F03.90 Unspecified dementia, unspecified severity, without behavioral disturbance, psychotic disturbance, mood disturbance, and anxiety; Z66 Do not resuscitate; Z96.653 Presence of artificial knee joint, bilateral; Z87.891 Personal history of nicotine dependence; Z85.46 Personal history of malignant neoplasm of prostate; Z90.79 Acquired absence of other genital organ(s); Z96.1 Presence of intraocular lens; Z98.42 Cataract extraction status, left eye; Z98.41 Cataract extraction status, right eye; Z79.899 Other long term (current) drug therapy; Z79.84 Long term (current) use of oral hypoglycemic drugs; Z79.85 Long-term (current) use of injectable non-insulin antidiabetic drugs; W06.XXXA Fall from bed, initial encounter
CPT/HCPCS: 70450; 71045; 72125; 72170; 99284